=== PATIENT | female | born 1970 | race Two or more races ===

== ENCOUNTER 2017-02-09 22:50 | Emergency (ER) | payer BC ==
[~2017-02-09] VITALS: Ht 149.9 cm; Wt 69.4 kg
[~2017-02-09 22:50] MED LIST: ACETAMINOPHEN500 M3 ORAL; CYCLOBENZAPRINE10 MG ORAL; IBUPROFEN600 MG ORAL; KEFLEX500 MG ORAL; PRENATAL FORMU1 EAC2 ORAL
[2017-02-09 23:15] VITALS: BP 127/92
[2017-02-09] MEDS ORDERED: PredniSONE 20mg tab ORAL ONE (23:30)
[2017-02-09] MEDS ORDERED: Albuterol ud Inhalation HHN ONE (23:30)
[2017-02-09] MEDS ORDERED: Ipratropium 0.02% Inh Soln 2.5ml UD HHN ONE (23:30)
[2017-02-10 00:30] VITALS: BP 126/68
[2017-02-10] MEDS ORDERED: LEVOTHYROXINE125 MCG ORAL ×2 (00:32→00:45)
[2017-02-10] MEDS ORDERED: ATENOLOL25 MG ORAL ×2 (00:32→00:45)
[2017-02-10] MEDS ORDERED: PROMETHAZINE-D118 ML ORAL (00:45)
[2017-02-10] MEDS ORDERED: ALBUTEROL SULF8.5 GM INH (00:45)
[2017-02-10] MEDS ORDERED: AZITHROMYCIN250 MG ORAL (00:45)
[2017-02-10 00:56] VITALS: BP 126/68
--- NOTE | 2017-02-10 02:44 | Emergency Room Report ---
History of Present Illness General Chief Complaint: Upper Respiratory Illness Source: Patient Present Illness HPI 47-year-old female presents to ED for evaluation. For the last 5 days patient has had a productive cough with fever. Notes greenish sputum. Notes wheezing and shortness of breath. Notes pain with deep cough. Pain is sharp, 5/10, nonradiating. No aggravating relieving factors. Denies sick contacts or recent travel. Denies any other associated symptoms Allergies: Coded Allergies: CODEINE (Verified Allergy, Unknown, 12/30/15) Patient History Past Medical History: HTN Past Surgical History: none Pertinent Family History: none Social History: Denies: alcohol use, drug use, smoking Last Menstrual Period: January Now: No Immunizations: UTD Reviewed Nursing Documentation: PMH: Agreed, PSxH: Agreed Nursing Documentation-PMH Hx Cardiac Problems: No - hypothyroidism Hx Hypertension: Yes Review of Systems All Other Systems: negative except mentioned in HPI Physical Exam Vital Signs Date Time Temp Pulse Resp B/P Pulse Ox O2 Delivery O2 Flow Rate FiO2 02/09/17 22:55 102.6 103 20 134/89 100 Room Air Sp02 EP Interpretation: reviewed, normal General Appearance: no apparent distress, alert, GCS 15, non-toxic Head: normocephalic, atraumatic Eyes: bilateral eye PERRL, bilateral eye normal inspection ENT: hearing grossly normal, normal pharynx, no angioedema, normal voice Neck: full range of motion, supple/symm/no masses Respiratory: wheezing Cardiovascular #1: regular rate, rhythm, no edema Gastrointestinal: normal bowel sounds, non tender, soft, non-distended, no guarding, no rebound Rectal: deferred Genitourinary: no CVA tenderness Musculoskeletal: normal inspection Neurologic: alert, oriented x3, responsive, motor strength/tone normal, sensory intact, speech normal Psychiatric: normal inspection, judgement/insight normal Skin: normal inspection Lymphatic: normal inspection Medical Decision Making Diagnostic Impression: Primary Impression: Atypical pneumonia ER Course Hospital Course 47-year-old female presents to ED complaining of cough, fever x 5 days Differential diagnoses include: URI, bronchitis, asthma/COPD, pneumonia Clinical course Patient placed on stretcher. After initial history and physical I ordered prednisone, tylenol, cxr and nebulizer treatment. Chest x-ray shows no acute infiltrate Upon reassessment patient states cough and symptoms have improved. Diagnosis - atypical pneumonia Stable and discharged home with prescriptions for Rx cough syrup, Zpack, albuterol. Instructed to followup with PMD. Return to ED if symptoms recur or worsen Chest X-Ray Diagnostic Results EP Interpretation: Yes Findings: no consolidation, no effusion, no pneumothorax, no acute cardiopulmonary disease Number of Views: 1 Last Vital Signs Date Time Temp Pulse Resp B/P Pulse Ox O2 Delivery O2 Flow Rate FiO2 02/10/17 00:56 100.8 107 18 126/68 100 Room Air Status: improved Disposition: HOME, SELF-CARE Condition: Stable Scripts D-Methorphan Hb/Prometh Hcl* (PROMETHAZINE-DM SYRUP*) 118 Ml Syrup 5 ML ORAL Q4H Y for For Cough, #118 ML 0 Refills Prov: CRISPIN FOUNTAIN M.D. 02/10/17 Albuterol Sulfate* (ALBUTEROL SULFATE MDI*) 8.5 Gm Hfa.aer.ad 2 PUFF INH Q4H Y for cough/wheezing, #1 EA 0 Refills Prov: CRISPIN FOUNTAIN M.D. 02/10/17 Atenolol* (TENORMIN*) 25 Mg Tablet 25 MG ORAL DAILY, #30 TAB Prov: CRISPIN FOUNTAIN M.D. 02/10/17 Levothyroxine Sodium* (LEVOTHYROXINE SODIUM*) 125 Mcg Tablet 125 MCG ORAL DAILY, #30 TAB Take in the morning on an empty stomach, at least 30 minutes before food. Prov: CRISPIN FOUNTAIN M.D. 02/10/17 Azithromycin* (ZITHROMAX*) 250 Mg Tablet 250 MG ORAL DAILY, #6 TAB 0 Refills Take two tablets by mouth today, then take one tablet by mouth daily for four days Prov: CRISPIN FOUNTAIN M.D. 02/10/17 Patient Instructions: Community-Acquired Pneumonia, Adult, [id number] CRISPIN FOUNTAIN M.D. Feb 10, 2017 02:44
--- NOTE | 2017-02-10 12:14 | Diagnostic Imaging Report ---
Indication: COUGH Technique: One view of the chest Comparison: 12/30/2015 Findings: Lungs and pleural spaces are clear. Heart size is normal. No significant change Impression: No acute process This agrees with the preliminary interpretation provided by the emergency room physician
== END 2017-02-10 00:58 | disposition home or self-care (01) ==
LOC: EMR 23:35
DX: J18.9 Pneumonia, unspecified organism (principal); I10 Essential (primary) hypertension; Z88.6 Allergy status to analgesic agent
CPT/HCPCS: 71010; 94640; 94664; 99284